=== PATIENT | female | born 1995 | race Caucasian/White ===

== ENCOUNTER 2021-07-17 20:44 | Observation (INO) ==
[2021-07-17] MEDS ORDERED: Lactated Ringers 1000 ml BAG 1,000 ML IV ONE (23:45)
[2021-07-17] MEDS ORDERED: Clindamycin 600 MG/D5W BAG 600 MG/50 ML BAG IV ONE (23:45)
[2021-07-18 00:24] LABS: ABS Monocytes 1.4 10^3/ul (0-0.8); ABS Neutrophils 12.2 10^3/ul (1.5-7.7); Eosinophil % 0.1 %; Hematocrit 39 % (35-47); Hemoglobin 13.1 g/dL (12.0-16.0); Lymphocyte % 6.8 %; Mean Corpuscular HGB Conc 34 g/dL (31-36); Mean Corpuscular Hemoglobin 29 pg (27-31); Mean Corpuscular Volume 86 fL (80-97); Mean Platelet Volume 7.6 fL (7.4-10.4); Platelet Count 250 10^3/uL (150-450); Red Blood Count 4.54 10^6 /uL (3.70-4.87); Red Cell Distribution Width 13 % (10-15); White Blood Count 14.6 10^3/uL (3.5-10.8)
[2021-07-18 00:41] LABS: Albumin 4.5 g/dL (3.2-5.2); Albumin/Globulin Ratio 1.3 (1-3); Calcium 9.7 mg/dL (8.6-10.3); Globulin 3.6 g/dL (2-4); Potassium 3.4 mmol/L (3.5-5.0); Total Bilirubin 0.6 mg/dL (0.2-1.0); Total Protein 8.1 g/dL (6.4-8.9)
[2021-07-18] MEDS ORDERED: Iohexol 300 (CONTRAST) 10 ML SDV IV ONE (00:48)
[2021-07-18] MEDS ORDERED: Lactated Ringers 1000 ml BAG 1,000 ML IV ONE ×2 (01:51→06:25)
[2021-07-18] MEDS ORDERED: Piperacillin/Tazobac ADVAN 3.375 GM in NS 0.9% 100 ml BAG 100 ML IV ONE (05:09)
[2021-07-18] MEDS ORDERED: Zosyn per Pharmacy NOTE FOLLOW UP SCH (06:00)
[2021-07-18 08:37] LABS: Rapid COVID-19 Molecular Undetected (Undetected)
[2021-07-18] MEDS: ZOSYN 3.375 GM Q8H per EXTENDED INFUSION IV SCH ×2 (11:10→18:19)
[2021-07-18] MEDS: methylPREDNISolone SOD 40 mg/ml 1 ml VIAL IV SCH ×2 (14:25→21:00)
[2021-07-18] MEDS: Pantoprazole VIAL 40 MG VIAL IV SCH (14:25)
[2021-07-19] MEDS: ZOSYN 3.375 GM Q8H per EXTENDED INFUSION IV SCH ×2 (01:29→09:17)
[2021-07-19 05:42] LABS: ABS Lymphocytes 0.5 10^3/ul (1.0-4.8); ABS Monocytes 0.5 10^3/ul (0-0.8); ABS Neutrophils 15.3 10^3/ul (1.5-7.7); Hematocrit 37 % (35-47); Hemoglobin 12.3 g/dL (12.0-16.0); Mean Corpuscular HGB Conc 33 g/dL (31-36); Mean Corpuscular Hemoglobin 29 pg (27-31); Mean Corpuscular Volume 85 fL (80-97); Mean Platelet Volume 7.7 fL (7.4-10.4); Platelet Count 224 10^3/uL (150-450); Red Cell Distribution Width 13 % (10-15); White Blood Count 16.2 10^3/uL (3.5-10.8)
[2021-07-19] MEDS: methylPREDNISolone SOD 40 mg/ml 1 ml VIAL IV SCH (05:54)
[2021-07-19 06:12] LABS: Calcium 9.2 mg/dL (8.6-10.3); Potassium 3.9 mmol/L (3.5-5.0)
[2021-07-19 07:26] VITALS: BP 101/59
[2021-07-19] MEDS: Pantoprazole VIAL 40 MG VIAL IV SCH (09:17)
== END 2021-07-19 13:26 | disposition home or self-care (01) ==
LOC: EDHOLD 20:44 → ED 20:44 → SUATTDRO 07-18 05:15 → MEDTELE 07-18 12:21
PROVIDERS: ADMIT Internal Medicine; ATTEND Hospitalist